=== PATIENT | male | born 1950 | race Caucasian/White ===

== ENCOUNTER 2024-11-02 09:15 | Outpatient (AMB) | payer MEDICARE, SELFPAY ==
--- NOTE | 2024-11-02 09:34 | HO.NEPHOV_ITS ---
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 He is known to have hypertension and is on amlodipine. He is not a diabetic. He is not known to have any active prostatic problems. He denies any nausea, vomiting, diarrhea, chest pain, shortness of breath. He has history of COPD as well as cyst of the kidney. He is a prediabetic. He does not have any hematuria, pedal edema, new bone pain, back pain, excessive nonsteroidal anti- inflammatory medication intake, sinusitis, sore throat, epistaxis, hemoptysis, weight loss, orthostatic symptoms. He maintains good hydration. His serum creatinine has been fluctuant, the last one being 1.4. His blood pressure has been running low normal and the dose of amlodipine has been reduced recently. He takes proton pump inhibitor regularly. He feels well. [facility] Medical History (Updated 11/02/24 @ 09:59 by Liam Cerda MD) Rhinorrhea Renal insufficiency Impaired fasting glucose Hypertension Hyperlipidemia Diverticular disease Cyst of kidney, acquired CKD (chronic kidney disease), stage II Chronic obstructive lung disease Benign colon polyp Ferguson's esophagus Surgical History (Updated 11/02/24 @ 09:36 by Marjorie Palma MA) History of cataract surgery H/O colonoscopy Family History (Updated 11/02/24 @ 09:35 by Marjorie Palma MA) Brother Cancer Social History (Updated 11/02/24 @ 09:35 by Marjorie Palma MA) Alcohol intake: never Patient Tobacco Use Status: Never used Tobacco Review of Systems Const All systems reviewed & are unremarkable except as noted in HPI and below Physical Exam Vital Signs: Last Vital Signs Pulse 86 11/02/24 09:37 BP 120/90 H 11/02/24 09:37 Pulse Ox 96 11/02/24 09:37 Oxygen Delivery Method Room Air 11/02/24 09:37 BMI result Body Mass Index 30.5 Const General: comfortable and no acute distress Orientation/consciousness: patient oriented x3 HEENT Head: Yes normocephalic Mouth: Normal oral and palatal mucosa present Eyes EOM: EOMs intact bilaterally Neck Neck: Yes supple Resp Auscultation: clear to auscultation bilaterally Cardio Jugular venous distension: no JVD Rate: regular rate GI Palpation (GI): Soft to palpation Auscultation: normal bowel sounds General: Yes no CVA tenderness Back/Spine/Pelvis Back: no CVA tenderness Skin General skin exam: no rashes or lesions noted Neuro General: patient oriented x3 and moves all extremities Extrem General: Yes no pedal edema Results Reviewed Nephrology Results: No Data to Display Assessment & Plan Assessment & Plan (1) Hypertension: Code(s): I10 - Essential (primary) hypertension Category: Medical Qualifiers: Hypertension type: primary hypertension Qualified Code(s): I10 - Essential (primary) hypertension (2) CKD stage 3a, GFR 45-59 ml/min: Code(s): N18.31 - Chronic kidney disease, stage 3a Category: Medical Plan Bill most likely has chronic kidney disease due to vascular disease as well as age-related loss of renal function. He is known to be hypertensive and has been taking calcium channel paris, dose of which has been reduced recently due to low normal blood pressures. He is known to have renal cyst. There is no family history of any ESRD or renal transplantation. He does not take any excessive nonsteroidal anti-inflammatories and maintain good hydration. There is no reason to suspect any active GN or AIN. If his serum creatinine rises we have to consider holding his PPI. His serum creatinine might have gone up marginally lately due to reduced renal perfusion from low normal blood pressures. I have ordered follow-up blood work. There is no indication for any renal biopsy at this moment. Further management is pending evolving data. Answered all questions. Follow-up appointment given. Orders: Orders Electrolytes 6 Months N18.31 - Chronic kidney disease, stage 3a, I10 - Essential (primary) hypertension Calcium 6 Months N18.31 - Chronic kidney disease, stage 3a, I10 - Essential (primary) hypertension Creatinine 6 Months N18.31 - Chronic kidney disease, stage 3a, I10 - Essential (primary) hypertension Blood Urea Nitrogen 6 Months N18.31 - Chronic kidney disease, stage 3a, I10 - Essential (primary) hypertension Myeloperoxidase Antibody 6 Months N18.31 - Chronic kidney disease, stage 3a, I10 - Essential (primary) hypertension Proteinase 3 PR3 Antibodies 6 Months N18.31 - Chronic kidney disease, stage 3a, I10 - Essential (primary) hypertension Immunofixation Pnl, Serum 6 Months N18.31 - Chronic kidney disease, stage 3a, I10 - Essential (primary) hypertension Protein Creatinine Ratio, Ur 6 Months N18.31 - Chronic kidney disease, stage 3a, I10 - Essential (primary) hypertension UA and rflx microscopic 6 Months N18.31 - Chronic kidney disease, stage 3a, I10 - Essential (primary) hypertension Coding Level of Care Code New Pt Level 4 (58457) Diagnoses Primary hypertension I10 Hypertension type: primary hypertension CKD stage 3a, GFR 45-59 ml/min N18.
[2024-11-02 09:37] VITALS: BP 120/90; PULSE 86; O2SAT 96; BMI 30.5
== END 2024-11-02 10:04 | disposition home or self-care (01) ==
PROVIDERS: PCP Family Medicine; Visit Provider Internal Medicine Nephrology
DX: I10 Essential (primary) hypertension (principal); N18.31 Chronic kidney disease, stage 3a
CPT/HCPCS: 99204

== ENCOUNTER → 2024-11-02 09:15 | Outpatient (BNVA) | payer MEDICARE, SELFPAY | PROVIDERS: PCP Family Medicine; Visit Provider Internal Medicine Nephrology | DX: I12.9 Hypertensive chronic kidney disease with stage 1 through stage 4 chronic kidney disease, or unspecified chronic kidney disease (principal); N18.31 Chronic kidney disease, stage 3a; Z79.899 Other long term (current) drug therapy | CPT/HCPCS: 99202 ==

== ENCOUNTER 2025-05-03 09:57 | Outpatient (AMB) | payer MEDICARE, SELFPAY ==
--- NOTE | 2025-05-03 10:00 | HO.NEPHOV ---
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 He is known to have hypertension and is on amlodipine. He is not a diabetic. He is not known to have any active prostatic problems. He denies any nausea, vomiting, diarrhea, chest pain, shortness of breath. He has history of COPD as well as cyst of the kidney. He is a prediabetic. He does not have any hematuria, pedal edema, new bone pain, back pain, excessive nonsteroidal anti-inflammatory medication intake, sinusitis, sore throat, epistaxis, hemoptysis, weight loss, orthostatic symptoms. He maintains good hydration. His serum creatinine has been fluctuant, the last one being 1.14. He is on amlodipine for hypertension. He takes proton pump inhibitor regularly. He feels well [facility] Medical History (Updated 05/03/25 @ 10:03 by Liam Cerda MD) Rhinorrhea Renal insufficiency Impaired fasting glucose Hypertension Hyperlipidemia Diverticular disease Cyst of kidney, acquired CKD (chronic kidney disease), stage II Chronic obstructive lung disease Benign colon polyp Ferguson's esophagus Surgical History (Updated 11/02/24 @ 09:36 by Marjorie Palma MA) History of cataract surgery H/O colonoscopy Family History (Updated 11/02/24 @ 09:35 by Marjorie Palma MA) Brother Cancer Social History (Updated 11/02/24 @ 09:35 by Marjorie Palma MA) Alcohol intake: never Patient Tobacco Use Status: Never used Tobacco Review of Systems Const All systems reviewed & are unremarkable except as noted in HPI and below Physical Exam Const General: comfortable and no acute distress Orientation/consciousness: patient oriented x3 HEENT Head: Yes normocephalic Mouth: Normal oral and palatal mucosa present Eyes EOM: EOMs intact bilaterally Neck Neck: Yes supple Resp Auscultation: clear to auscultation bilaterally Cardio Jugular venous distension: no JVD Rate: regular rate GI Palpation (GI): Soft to palpation Auscultation: normal bowel sounds General: Yes no CVA tenderness Back/Spine/Pelvis Back: no CVA tenderness Skin General skin exam: no rashes or lesions noted Neuro General: patient oriented x3 and moves all extremities Extrem General: Yes no pedal edema Assessment & Plan Assessment & Plan (1) CKD stage 3a, GFR 45-59 ml/min: Code(s): N18.31 - Chronic kidney disease, stage 3a Category: Medical (2) Hypertension: Code(s): I10 - Essential (primary) hypertension Category: Medical Qualifiers: Hypertension type: primary hypertension Qualified Code(s): I10 - Essential (primary) hypertension (3) Renal cyst: Code(s): N28.1 - Cyst of kidney, acquired Category: Medical Plan Jesus most likely has chronic kidney disease due to vascular disease as well as age-related loss of renal function. He has B/L renal cysts. He is known to be hypertensive and has been taking calcium channel paris. He is known to have renal cyst. There is no family history of any ESRD or renal transplantation. He does not take any excessive nonsteroidal anti-inflammatories and maintain good hydration. There is no reason to suspect any active GN or AIN. His serum creatinine might had gone up marginally due to reduced renal perfusion from low normal blood pressures, which has improved to baseline with medication dose adjustment. His recent blood work was reviewed. There is no indication for any renal biopsy at this moment. I did not make any medication changes today. Answered all questions. Follow-up appointment given. Coding Level of Care Code Est Pt Level 4 (43663) Diagnoses CKD stage 3a, GFR 45-59 ml/min N18.31 Primary hypertension I10 Hypertension type: primary hypertension Renal cyst N28.1
[2025-05-03 10:05] VITALS: BP 110/80; PULSE 95; O2SAT 97; BMI 29.2
--- OUTSIDE RECORDS SUMMARY | 2025-05-03 11:07 | XMS_ITS | Clinical Summary ---
Author Organization Formerly [facility] Address [address] [place] [address] Care Team Providers Care Buckle Inspector Name Role Phone Anil Perdomo MD Primary Care Provider [phone] Allergies No known active allergies Medications Medication Sig Dispensed Refills Start Date End Date Status aspirin 81 MG chewable tablet Chew 81 mg by mouth daily. 0 Active Multiple Vitamin (MULTI VITAMIN DAILY PO) Take by mouth daily. 0 Active Esomeprazole Magnesium (NEXIUM PO) Take by mouth daily. 0 Active Active Problems Problem Noted Date Diagnosed Date Macrocytosis without anemia 05/03/2017 Social History Tobacco Use Types Packs/Day Years Used Date Smoking Tobacco: Never Smokeless Tobacco: Never Alcohol Use Standard Drinks/Week Comments No 0 (1 standard drink = 0.6 oz pur e alcohol) Sex and Gender Information Value Date Recorded Sex Assigned at Not on file Gender Identity Not on file Sexual Orientation Not on file Last Filed Vital Signs Vital Sign Reading Time Taken Comments Blood Pressure 133/66 05/03/2017 9:20 AM EDT Pulse 125 05/03/2017 9:20 AM EDT Temperature - - Respiratory Rate - - Oxygen Saturation - - Inhaled Oxygen Concentration - - Weight 106.1 kg (234 lb) 05/03/2017 9:20 AM EDT Height 185.4 cm (6' 1 ) 05/03/2017 9:20 AM EDT Body Mass Index 30.87 05/03/2017 9:20 AM EDT Plan of Treatment Health Maintenance Due Date Last Done Comments Hepatitis C Screening 1950 COVID-19 Vaccine (#1) 01/04/1951 Depression Screening 1960 Preventative Health Evaluation 1966 DTap / Tdap / Td (1 - Tdap) 1967 Shingrix-Zoster Vaccine (1 of 2) 1998 Fall Risk Assessment 2013 Pneumococcal Vaccine (1 of 1 - PCV) 2013 RSV Adult > 60+ Yrs or Pregn ant (1 - 1-dose 75+ series) 2023 Influenza Vaccine (Season Ended) 2025 Hepatitis B Vaccines Aged Out No long er eligible based on patient's age to complete this topic RSV Ped < 20 months Aged Out No longe r eligible based on patient's age to complete this topic Care Teams Buckle Inspector Relationship Specialty Start Date End Date Anil Perdomo MD [address] [place] [id number] PCP - General Family Medicine 04/25/17
== END 2025-05-03 10:25 | disposition home or self-care (01) ==
LOC: HO.HKAS 09:58
PROVIDERS: PCP Family Medicine; Visit Provider Internal Medicine Nephrology
DX: N18.31 Chronic kidney disease, stage 3a (principal); I10 Essential (primary) hypertension; N28.1 Cyst of kidney, acquired
CPT/HCPCS: 99214

== ENCOUNTER → 2025-05-03 09:57 | Outpatient (BNVA) | payer MEDICARE, SELFPAY | PROVIDERS: PCP Family Medicine; Visit Provider Internal Medicine Nephrology | DX: N18.31 Chronic kidney disease, stage 3a (principal); I12.9 Hypertensive chronic kidney disease with stage 1 through stage 4 chronic kidney disease, or unspecified chronic kidney disease; N28.1 Cyst of kidney, acquired | CPT/HCPCS: 99212 ==